=== PATIENT | male | born 1965 | race Caucasian/White ===

== ENCOUNTER 2017-07-14 06:15 | Day surgery (SDC) | payer BC, OTHER ==
[2017-07-14] MEDS ORDERED: LR 1,000 ML IV ONE (06:48)
[2017-07-14] MEDS ORDERED: LIDOCAINE 1% 2 ML INJ ID PRN (06:48)
[2017-07-14] MEDS ORDERED: BUPIVACAINE 0.5% 30 ML SDV ONE (07:00)
--- NOTE | 2017-07-14 07:34 | PDHPUP ---
History & Physical Update H&P update statement: This history and physical update is based on an assessment of the patient which was completed after admission or registration (within 24 hours), but prior to the surgery/procedure. H&P update: H&P reviewed & patient examined, no change in patient's condition since H&P completed
[2017-07-14] MEDS ORDERED: ceFAZolin 2 GM/SWFI 2 GM/20 ML SYR IVP ONE (07:37)
[2017-07-14] MEDS ORDERED: MIDAZOLAM 2 MG/2 ML VIAL IVP ONE (07:54)
--- NOTE | 2017-07-14 07:54 | PDANEPAE ---
ANE History of Present Illness here for R ANE Past Medical History - Cardiovascular History Hx Hypertension: No Hx Arrhythmias: No Hx Chest Pain: No Hx Coronary Artery / Peripheral Vascular Disease: No Hx CHF / Valvular Disease: No Hx Palpitations: No Cardiovascular History Comment: hypercholesteremia - Pulmonary History Hx COPD: No Hx Asthma/Reactive Airway Disease: No Hx Recent Upper Respiratory Infection: No Hx Oxygen in Use at Home: No Hx Sleep Apnea: No Sleep Apnea Screening Result - Last Documented: Negative - Neurologic History Hx Cerebrovascular Accident: No Hx Seizures: No Hx Dementia: No - Endocrine History Hx Diabetes: No - Renal History Hx Renal Disorders: No - Liver History Hx Hepatic Disorders: No - Neurological & Psychiatric Hx Hx Neurological and Psychiatric Disorders: No - Cancer History Hx Cancer: No - Congenital Disorder History Hx Congenital Disorders: No - GI History Hx Gastrointestinal Disorders: Yes Gastrointestinal History Comment: umbilical hernia - Chronic Pain History Chronic Pain: No - Surgical History Prior Surgeries: wisdom teeth extraction ANE Review of Systems Review of Systems: - Exercise capacity Exercise capacity: >=4 METS METS (RN): 4 METS ANE Patient History - Allergies Allergies/Adverse Reactions: No Known Allergies Allergy (Verified 07/08/17 15:52) - Home Medications Home medications: home medication list seen and reviewed Home Medications: Rosuvastatin Calcium [Crestor] 10 mg PO DAILY 08/10/11 [Last Taken 07/12/17] Acyclovir 07/08/17 [Last Taken 3 Weeks Ago ~06/23/17] - NPO status NPO Status: no food or drink >8 hours NPO Since - Liquids (Date): 07/13/17 NPO Since - Liquids (Time): 22:30 NPO Since - Solids (Date): 07/13/17 NPO Since - Solids (Time): 20:30 - Anes Hx Anes Hx: no prior problems - Smoking Hx Smoking Status: Current some day smoker - Family Anes Hx Family Hx Anesthesia Complications: none ANE Labs/Vital Signs - Vital Signs Vital Signs: reviewed preoperatively; see RN documention for details Blood Pressure: 149/106 Heart Rate: 66 Respiratory Rate: 16 O2 Sat (%): 97 Height: 175.26 cm Weight: 97.522 kg ANE Physical Exam - Airway Neck exam: FROM Mallampati Score: Class 1 Mouth exam: normal dental/mouth exam - Pulmonary Pulmonary: no respiratory distress - Cardiovascular Cardiovascular: regular rate and rhythym - ASA Status ASA Status: II ANE Anesthesia Plan Anesthesia Plan: general endotracheal anesthesia
[2017-07-14] MEDS ORDERED: PROPOFOL/EMULSION 500 MG/50 ML BOTTLE IV ONE (08:04)
[2017-07-14] MEDS ORDERED: fentaNYL 100 MCG/2 ML INJ ONE (08:07)
[2017-07-14] MEDS ORDERED: SUGAMMADEX SODIUM 200 MG/2 ML VIAL IVP ONE (08:34)
--- NOTE | 2017-07-14 08:56 | POSTOPPROG ---
Post Op Note Date of Operation: 07/14/17 Surgeon: Arturo Bravo Anesthesiologist: Darrell Anesthesia: GET(General Endotracheal) Pre-op Diagnosis: umbilical hernia Post-op Diagnosis: same Procedure: primary open umbilical hernia repair Findings: small 1cm defect, repaired with braided nylon Inf/Abcess present in the surg proc area at time of surgery?: No EBL: Minimal
[2017-07-14 08:58] VITALS: TEMP 97.5
[2017-07-14] MEDS ORDERED: DEXAMETHASONE 4 MG/ML VIAL IVP PRN (09:01)
[2017-07-14] MEDS ORDERED: HYDROmorphONE/DILAUDID 1 MG/ML INJ IVP PRN (09:01)
[2017-07-14] MEDS ORDERED: ONDANSETRON 4 MG/2 ML VIAL IVP PRN (09:01)
[2017-07-14] MEDS ORDERED: HYDROCODONE/APAP 5/325 TAB PO PRN (09:01)
[2017-07-14] MEDS ORDERED: LABETALOL HCL 5 MG/ML 20 ML MDV IVP PRN (09:01)
[2017-07-14] MEDS ORDERED: NALOXONE HCL 0.4 MG/ML INJ IVP PRN (09:01)
[2017-07-14] MEDS ORDERED: OXYCODONE/APAP 5/325 TAB PO PRN (09:01)
[2017-07-14] MEDS ORDERED: ALBUTEROL 3 ML DEYVIAL IH PRN (09:01)
[2017-07-14] MEDS ORDERED: fentaNYL 100 MCG/2 ML INJ IVP PRN (09:01)
[2017-07-14] MEDS ORDERED: PROMETHAZINE HCL 25 MG/ML INJ IVP PRN (09:01)
--- NOTE | 2017-07-14 09:02 | POSTANESTH ---
Post Anesthetic Evaluation Cardiovascular Status: Normal, Stable Respiratory Status: Normal, Stable Level of Consciousness/Mental Status: Can Participate in Eval Pain Control: Adequate, Prn Tx Ordered Nausea/Vomiting Control: Adequate, Prn Tx Ordered Complications Possibly Related to Anesthesia: None Noted
[2017-07-14 09:28] VITALS: BP 132/86; PULSE 69; RESP 17; O2SAT 94
--- NOTE | 2017-07-14 09:30 | GOP ---
[f rep st] OPERATIVE REPORT DATE OF OPERATION: 07/14/2017 SURGEON: Arturo Bravo MD CONSULTING SERVICES ASSOCIATE: None. ANESTHESIA: General endotracheal. ANESTHESIOLOGIST: Vladimir Ramírez MD. PREOPERATIVE DIAGNOSIS: Symptomatic umbilical hernia. POSTOPERATIVE DIAGNOSIS: Symptomatic umbilical hernia. PROCEDURE PERFORMED: Open primary umbilical hernia repair. FINDINGS: Small centimeter-sized defect repaired with braided nylon. SPECIMENS: None. ESTIMATED BLOOD LOSS: 5 cc. DESCRIPTION OF PROCEDURE: The patient was greeted in the preoperative suite. Once again, risks, benefits, and alternatives were discussed. Consent was signed. He was then brought back to the operative suite, placed on the OR table in supine position. After all anesthesia machines including, SCDs were, on and functioning, [employer] time-out was performed. After successful induction of general anesthesia, the patient's abdomen was prepped and draped in typical sterile fashion. I commenced the procedure by making a curvilinear infraumbilical incision and carrying it down through the subcutaneous tissue. I then amputated the umbilical stalk from the underlying hernia itself. I then reduced the preperitoneal contents back into the correct anatomic space and cleaned the fascial edges. All in all, the fascial defect was approximately 1 cm large. I elected to perform a primary repair, which was done with braided nylon using Smead-Zaragoza stitches. I successfully reapproximated the defect under minimal to no tension. After closing the fascia , I injected Marcaine into all of the surgical sites. I irrigated with warm normal saline and reapproximated the umbilical stalk. I closed the underlying subcutaneous tissue with interrupted 3-0 Vicryl and ran the skin with 4-0 Monocryl over which Dermabond and a sterile dressing was placed. The patient was then extubated in the operative suite and taken to the PACU in satisfactory condition. DRAINS: None. COUNTS: All counts were reported as correct x2. /[id number]/MODL MTDD
== END 2017-07-14 10:10 | disposition home or self-care (01) ==
LOC: FSGY 06:15
PROVIDERS: ATTEND Surgery
PROC: 0WQF0ZZ Repair Abdominal Wall, Open Approach (ICD-10-PCS; principal; 2017-07-14 08:00)
DX: K42.9 Umbilical hernia without obstruction or gangrene (principal)
CPT/HCPCS: J0690; J2250; J2704; J3010